=== PATIENT | female | born 1935 | race Caucasian/White ===

== ENCOUNTER → 2016-10-31 | Outpatient (CLI) | payer MEDICARE, BC ==
[~2016-10-31] VITALS: Ht 152.4 cm; Wt 54.4 kg
== END ==
LOC: OPSV 12:26
DX: M85.80 Other specified disorders of bone density and structure, unspecified site (principal)
CPT/HCPCS: 96365; J3489; J7050

== ENCOUNTER 2021-08-09 18:16 | Emergency (ER) | payer MEDICARE, BC ==
[2021-08-09 20:08] LABS: HEMOGLOBIN 12.3 gm/dl (12.3-15.3); RED BLOOD COUNT 4.2 M/UL (4.00-5.10); WHITE BLOOD COUNT 6.1 K/UL (4.5-11.0)
[2021-08-09 20:24] LABS: BUN/CREATININE RATIO 25 (0-10)
[2021-08-10] MEDS ORDERED: OMNICEF 300 MG300 MG PO (14:17)
== END 2021-08-10 14:50 | disposition home or self-care (01) ==
LOC: ER1 18:16
PROVIDERS: Physician Assistant
DX: G45.9 Transient cerebral ischemic attack, unspecified (principal); E11.9 Type 2 diabetes mellitus without complications; E03.9 Hypothyroidism, unspecified; E78.5 Hyperlipidemia, unspecified; F03.90 Unspecified dementia, unspecified severity, without behavioral disturbance, psychotic disturbance, mood disturbance, and anxiety; I48.91 Unspecified atrial fibrillation; I10 Essential (primary) hypertension; Z20.822 Contact with and (suspected) exposure to COVID-19
CPT/HCPCS: 0240U; 70450; 70496; 70498; 70553; 71045; 80053; 81001; 82550; 82553; 82962; 83874; 84484; 85025; 85610; 87086; 93005; 96365; 96376; 99285; A9577; J0696; J7030; Q9967

== ENCOUNTER 2021-09-08 16:07 | Emergency (ER) | payer MEDICARE, BC ==
[~2021-09-08 16:07] MED LIST: OMNICEF 300 MG300 MG PO
[2021-09-08 17:02] LABS: HEMOGLOBIN 13.1 gm/dl (12.3-15.3); RED BLOOD COUNT 4.45 M/UL (4.00-5.10); WHITE BLOOD COUNT 6.1 K/UL (4.5-11.0)
[2021-09-08 17:26] LABS: BUN/CREATININE RATIO 28 (0-10)
== END 2021-09-08 20:19 | disposition home or self-care (01) ==
LOC: ER1 16:07
PROVIDERS: Family Medicine
DX: E11.649 Type 2 diabetes mellitus with hypoglycemia without coma (principal)
CPT/HCPCS: 80053; 81001; 82550; 82553; 82962; 83874; 84484; 85025; 93005; 96374; 99283

== ENCOUNTER → 2021-09-24 | Outpatient (CLI) | payer MEDICARE, BC ==
[~2021-09-24] VITALS: Ht 147.3 cm; Wt 54.4 kg
== END ==
LOC: OPSV 09-05 14:00
DX: M81.0 Age-related osteoporosis without current pathological fracture (principal)
CPT/HCPCS: 96365; J3489

== ENCOUNTER 2021-11-18 13:03 | Observation (INO) | payer MEDICARE, BC ==
[~2021-11-18] VITALS: Ht 157.5 cm; Wt 59.0 kg
[2021-11-18 14:22] LABS: HEMOGLOBIN 13.5 gm/dl (12.3-15.3); RED BLOOD COUNT 4.6 M/UL (4.00-5.10); WHITE BLOOD COUNT 6.7 K/UL (4.5-11.0)
[2021-11-18 14:43] LABS: BUN/CREATININE RATIO 33 (0-10)
[2021-11-19 02:12] LABS: HEMOGLOBIN 12.8 gm/dl (12.3-15.3); RED BLOOD COUNT 4.45 M/UL (4.00-5.10)
[2021-11-19 02:16] LABS: WHITE BLOOD COUNT 8.8 K/UL (4.5-11.0)
[2021-11-19 02:40] LABS: BUN/CREATININE RATIO 33 (0-10)
[2021-11-19] MEDS ORDERED: FARXIGA10 MG PO (14:31)
[2021-11-19] MEDS ORDERED: NAMENDA 5 MG TAB5 MG PO (14:32)
[2021-11-19] MEDS ORDERED: ARICEPT10 MG PO (14:34)
[2021-11-19] MEDS ORDERED: LIPITOR TAB 1010 MG PO (14:34)
[2021-11-19] MEDS ORDERED: LEVOTHYROXINE75 MC1 PO (14:35)
[2021-11-19] MEDS ORDERED: DEPAKOTE 250 M250 MG PO (14:36)
[2021-11-19] MEDS ORDERED: GLYBURIDE5 MG PO (14:37)
[2021-11-19] MEDS ORDERED: ASPIRIN CHEWABL81 MG PO (14:38)
[2021-11-19] MEDS ORDERED: TUMS300 MG PO (14:38)
[2021-11-20 06:15] LABS: HEMOGLOBIN 13.6 gm/dl (12.3-15.3); RED BLOOD COUNT 4.65 M/UL (4.00-5.10)
[2021-11-20 06:17] LABS: WHITE BLOOD COUNT 6.5 K/UL (4.5-11.0)
[2021-11-20 06:33] LABS: BUN/CREATININE RATIO 24 (0-10)
[2021-11-20] MEDS ORDERED: ZITHROMAX250 MG PO (10:11)
[2021-11-20] MEDS ORDERED: LASIX20 MG PO (10:11)
[2021-11-20] MEDS ORDERED: URSO250 MG PO (10:11)
== END 2021-11-20 10:57 | disposition home or self-care (01) ==
LOC: ER1 13:03 → CDU 17:05 → M/S 17:05
PROVIDERS: Internal Medicine; Physician Assistant; ADMIT Internal Medicine
DX: R07.89 Other chest pain (principal); R06.02 Shortness of breath; E11.9 Type 2 diabetes mellitus without complications; E78.5 Hyperlipidemia, unspecified; F03.90 Unspecified dementia, unspecified severity, without behavioral disturbance, psychotic disturbance, mood disturbance, and anxiety; I10 Essential (primary) hypertension; E03.9 Hypothyroidism, unspecified; N39.0 Urinary tract infection, site not specified; Z20.822 Contact with and (suspected) exposure to COVID-19
CPT/HCPCS: ECHO; 36415; 71045; 80053; 81001; 82550; 82553; 82962; 83605; 84484; 85025; 85027; 85379; 93005; 93306; 94640; 94664; 94760; 99285; G0378; J0696; J1650; J1940; Q9967; U0002